=== PATIENT | female | born 1985 | race Caucasian/White ===

== ENCOUNTER 2017-07-28 22:30 | Emergency (ER) | payer SELFPAY ==
[~2017-07-28] VITALS: Ht 170.2 cm; Wt 99.8 kg
[2017-07-28 22:34] VITALS: BP 150/90
--- NOTE | 2017-07-28 22:40 | NUR ---
TO LOBBY, A/W BED, AMAfsaneh, LUMA ERMD NOTED
--- NOTE | 2017-07-28 23:19 | NUR ---
PT TAKEN TO XRAY FROM [facility]
--- NOTE | 2017-07-28 23:42 | NUR ---
PT RETURN FROM XRAY TO LOBBY
--- NOTE | 2017-07-28 23:53 | NUR ---
PT TAKEN TO BED 4
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
--- NOTE | 2017-07-29 00:10 | NUR ---
Dr. Corona evaluating patient at bedside.
[2017-07-29] MEDS ORDERED: IBUPROFEN 800 MG TAB PO ONE (00:30)
[2017-07-29 00:59] VITALS: BP 129/77
== END 2017-07-29 01:00 | disposition home or self-care (01) ==
LOC: MED 22:30
DX: S13.4XXA Sprain of ligaments of cervical spine, initial encounter (principal); S39.012A Strain of muscle, fascia and tendon of lower back, initial encounter; R10.9 Unspecified abdominal pain; R03.0 Elevated blood-pressure reading, without diagnosis of hypertension; V43.63XA Car passenger injured in collision with pick-up truck in traffic accident, initial encounter; Y93.89 Activity, other specified; Y99.8 Other external cause status; Y92.410 Unspecified street and highway as the place of occurrence of the external cause
CPT/HCPCS: 72040; 72100; 99284